=== PATIENT | male | born 1970 | race Caucasian/White ===

== ENCOUNTER 2021-12-30 03:29 | Emergency (ER) | payer MEDICAID ==
[~2021-12-30] VITALS: Ht 185.4 cm; Wt 104.3 kg
[2021-12-30 03:31] VITALS: BP 146/90
--- NOTE | 2021-12-30 03:31 | NUR ---
Dr. Barker examining patient at [facility].
--- NOTE | 2021-12-30 03:32 | NUR ---
PT ABIODUN KENNEDY. TAKEN TO BED 11
--- NOTE | 2021-12-30 03:34 | NUR ---
[place] [employer] OFFICER AT BEDSIDE
[2021-12-30] MEDS ORDERED: HYDROcodone/APAP 5/325 MG 1 TAB TAB PO ONE (03:45)
--- NOTE | 2021-12-30 04:07 | NUR ---
PT TAKEN TO RADIOLOGY
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
[2021-12-30] MEDS ORDERED: CYCL-711 PO (05:56)
[2021-12-30] MEDS ORDERED: LID5T TP (05:56)
[2021-12-30] MEDS ORDERED: NAPR-54 PO (05:56)
[2021-12-30 06:28] VITALS: BP 140/84
--- NOTE | 2021-12-30 06:31 | NUR ---
Patient discharged with v/s stable. Written and verbal after care instructions given and explained. Patient alert, oriented and verbalized understanding of instructions. Ambulatory with steady gait. All questions addressed prior to discharge. ID band removed. Patient advised to follow up with PMD. Rx of FLEXERIL, LIDODERM PATCH, AND NAPROSYN given. Patient educated on indication of medication including possible reaction and side effects. Opportunity to ask questions provided and answered. VSS, A/OX4, UNLABORED BREATHING, AMBULATORY, AND CALM DEMEANOR.
== END 2021-12-30 06:31 | disposition home or self-care (01) ==
LOC: MED 03:29
DX: R51.9 Headache, unspecified (principal); M54.50 Low back pain, unspecified; Y04.8XXA Assault by other bodily force, initial encounter; Y93.89 Activity, other specified; Y92.89 Other specified places as the place of occurrence of the external cause; Y99.8 Other external cause status
CPT/HCPCS: 70450; 72100; 72220; 99284

== ENCOUNTER 2022-02-08 05:13 | Emergency (ER) | payer MEDICAID ==
[~2022-02-08] VITALS: Ht 182.9 cm; Wt 88.5 kg
[~2022-02-08 05:13] MED LIST: CYCL-711 PO; LID5T TP; NAPR-54 PO
[2022-02-08 05:20] VITALS: BP 96/59
[2022-02-08] MEDS ORDERED: NACL 0.9% 1,000 ML IV SCH (05:20)
[2022-02-08] MEDS ORDERED: MORPHINE SULFATE 2 MG/ML SYR IVP ONE (05:20)
[2022-02-08] MEDS ORDERED: ONDANSETRON 4 MG/2 ML VIAL IVP ONE (05:20)
--- NOTE | 2022-02-08 05:20 | NUR ---
PT ABIODUN KENNEDY, TAKEN TO LOBBY VIA WHEELCHAIR
[2022-02-08] MEDS ORDERED: ACETAMINOPHEN EXTRA STRENGTH 500 MG TAB PO ONE (05:30)
[2022-02-08 05:39] VITALS: BP 96/59
--- NOTE | 2022-02-08 05:52 | NUR ---
Patient went to restroom.
--- NOTE | 2022-02-08 06:25 | NUR ---
Provided pants as request.
--- NOTE | 2022-02-08 06:30 | NUR ---
PATIENT ELOPED FROM FACILITY. DISCHARGE INSTRUCTIONS NOT GIVEN TO PATIENT. DR. Morales NOTIFIED.
--- NOTE | 2022-02-08 06:30 | NUR ---
Patient walked out ER.
== END 2022-02-08 06:30 | disposition left against medical advice (07) ==
LOC: MED 05:13
DX: R10.9 Unspecified abdominal pain (principal); Z85.038 Personal history of other malignant neoplasm of large intestine
CPT/HCPCS: 99281

== ENCOUNTER 2022-02-08 23:39 | Emergency (ER) | payer MEDICAID ==
[~2022-02-08] VITALS: Ht 182.9 cm; Wt 83.9 kg
--- NOTE | 2022-02-08 23:39 | NUR ---
PT [employer] [employer], [employer]
[2022-02-08 23:51] VITALS: BP 102/69
--- NOTE | 2022-02-09 00:07 | NUR ---
Patient D/C to custody.
== END 2022-02-09 00:07 ==
LOC: MED 23:39
DX: F17.210 Nicotine dependence, cigarettes, uncomplicated; F15.90 Other stimulant use, unspecified, uncomplicated; F12.90 Cannabis use, unspecified, uncomplicated; Z72.89 Other problems related to lifestyle
CPT/HCPCS: 99283